=== PATIENT | female | born 1990 | race Caucasian/White ===

== ENCOUNTER 2017-08-07 10:06 | Emergency (ER) | payer SELFPAY ==
[~2017-08-07] VITALS: Ht 162.6 cm; Wt 89.8 kg
[~2017-08-07 10:06] MED LIST: AMOX500C PO; POLY10DR3 EACHEYE
[2017-08-07 10:35] LABS: BILIRUBIN,URINE NEGATIVE (NEG); GLUCOSE,URINE NEGATIVE (NEG); NITRITE,URINE NEGATIVE (NEG); PROTEIN,URINE 100 mg/dL (NEG-TRACE)
[2017-08-07 10:50] LABS: SQUAMOUS EPITHELIAL CELL,UR OCC /LPF
[2017-08-07 10:51] LABS: BACTERIA,URINE MODERATE /HPF (0-FEW); RBC,URINE FOBS /HPF (0-2); WBC,URINE TNTC /HPF (0-4)
--- NOTE | 2017-08-07 10:53 | PHYS DOC ---
Past Medical History Past Medical History: No Pertinent History Past Surgical History: No Surgical History Alcohol Use: Occasionally Drug Use: None Adult General Chief Complaint Chief Complaint: ABDOMINAL PAIN IN HPI HPI Patient is a 26 year old female since to the emergency department stating that she is approximately 7 weeks . She states that she's been having right lower pelvic pain for the last 2 weeks. She states she was seen last week at [facility]. She states they did do an ultrasound which showed an intrauterine . She states that they did not do any vaginal exam or vaginal cultures. She states that she's been having some yellow vaginal discharge. She does state she was sexually active with only one partner. She denies any history of STD she does have a history of bacterial vaginosis in the past. Some urinary frequency denies any blood in her urine denies any vaginal bleeding at this time. SAB4 Review of Systems Review of Systems Constitutional: Denies fever or chills [] Eyes: Denies change in visual acuity, redness, or eye pain [] HENT: Denies nasal congestion or sore throat [] Respiratory: Denies cough or shortness of breath [] Cardiovascular: No additional information not addressed in HPI [] GI: right lower pelvic abdominal pain, denies nausea, vomiting, bloody stools or diarrhea [] : dysuria, yellow vaginal discharge denies hematuria [] Musculoskeletal: Denies back pain or joint pain [] Integument: Denies rash or skin lesions [] Neurologic: Denies headache, focal weakness or sensory changes [] Endocrine: Denies polyuria or polydipsia [] Allergies Allergies Allergies Coded Allergies Type Severity Reaction Last Updated Verified No Known Drug Allergies 01/07/15 No Physical Exam Physical Exam Constitutional: Well developed, well nourished, no acute distress, non-toxic appearance. [] HENT: Normocephalic, atraumatic, bilateral external ears normal, oropharynx moist, no oral exudates, nose normal. [] Eyes: PERRLA, EOMI, conjunctiva normal, no discharge. [] Neck: Normal range of motion, no tenderness, supple, no stridor. [] Cardiovascular:Heart rate regular rhythm, no murmur [] Lungs & Thorax: Bilateral breath sounds clear to auscultation [] Abdomen: Bowel sounds hypoactive, soft, no tenderness, no masses, no pulsatile masses. [] Skin: Warm, dry, no erythema, no rash. [] Extremities: No tenderness, no cyanosis, no clubbing, ROM intact, no edema. [] Neurologic: Alert and oriented X 3, normal motor function, normal sensory function, no focal deficits noted. [] Psychologic: Affect normal, judgement normal, mood normal. [] Vaginal exam with Maddy RN at bedside. Speculum exam with yellow clear vaginal discharge noted in the vault. Cervix appears closed. Manual exam with right adnexal tenderness, no left adnexal tenderness no CMT Current Patient Data Vital Signs Vital Signs Date Time Temp Pulse Resp B/P (MAP) Pulse Ox O2 Delivery O2 Flow Rate FiO2 08/07/17 10:24 98.5 88 16 126/74 (91) 98 Room Air 98.5 Lab Values Laboratory Tests Test 08/07/17 10:12 08/07/17 10:27 08/07/17 10:53 Urine Collection Type Unknown Urine Color Yellow Urine Clarity Cloudy Urine pH 7.0 Urine Specific [place] 1.025 Urine Protein 100 mg/dL (NEG-TRACE) Urine Glucose (UA) Negative mg/dL (NEG) Urine Ketones (Stick) Negative mg/dL (NEG) Urine Blood Small (NEG) Urine Nitrite Negative (NEG) Urine Bilirubin Negative (NEG) Urine Urobilinogen Dipstick 1.0 mg/dL (0.2 mg/dL) Urine Leukocyte Esterase Large (NEG) Urine RBC Fobs /HPF (0-2) Urine WBC Tntc /HPF (0-4) Urine Squamous Epithelial Cells Occ /LPF Urine Bacteria Moderate /HPF (0-FEW) Urine Mucus Slight /LPF POC Urine HCG, Qualitative Hcg positive (Negative) Maternal Serum HCG Beta Subunit 91278 mIU/mL (0-5) H Microbiology 08/07/17 Wet Prep - Final, Complete EKG EKG [] Radiology/Procedures Radiology/Procedures [][facility] [address] [place] [address] IMAGING REPORT Signed PATIENT: PAUL HERRERA ACCOUNT: [id number] : 1990 LOCATION: ER AGE: 26 SEX: F EXAM STATUS: REG ER ORD. PHYSICIAN: SIMON FINCH APRN REASON: vaginal bleeding approx 7 wks preg per patient PROCEDURE: OB <14 WKS W/TV Examination: Obstetric ultrasound less than 14 weeks History: History of pelvic pain Comparison: 11/23/2015 Findings: The uterus measures 11.4 x 7.2 x 6.3 cm. The right ovary measures 3.5 x 2.9 x 4.5 cm. The left ovary measures 3.1 x 1.9 x 2.5 cm. Intrauterine gestational sac is identified with the yolk sac. pole is identified with crown-rump length measuring 0.6 cm corresponding to 6 weeks and 3 days. Gestational sac measures 3.1 cm corresponding to 8 weeks and 2 days. Gestational age by this ultrasound is 7 weeks and 3 days with estimated date of delivery by this ultrasound 03/23/2018. Please note that the given LMP is ?01/24/2017, which may be wrong. Amniotic fluid is normal. Impression: Single living intrauterine with heart rate of 118 bpm. Gestational age by this ultrasound 7 weeks and 3 days with estimated date of delivery by this ultrasound 03/23/2018. DICTATED and SIGNED BY: FEDERICO LEMA MD DATE: 08/07/17 1142 CC: SIMON FINCH APRN; NO PCP ~ Course & Med Decision Making Course & Med Decision Making Pertinent Labs and Imaging studies reviewed. (See chart for details) US identified a 7 week intrauterine . Patients wet prep was positive for bacterial vaginosis. Urine is positive for UTI. Patient refused to be treated for STD. Patient will be discharged home in stable condition recommended she drink plenty of fluids such as water and cranberry juice. Recommended avoiding cranberry juice cocktail, carbonated beverages, caffeine and alcohol. Recommended followup within the next week with [facility] or primary care provider. Signs and symptoms to return to the emergency department has been provided all questions and concerns have been answered. Patient will be discharged home in stable condition. beta quant hcg [id number] [] Dragon Disclaimer Dragon Disclaimer This electronic medical record was generated, in whole or in part, using a voice recognition dictation system. Departure Departure Impression: Primary Impression: Bacterial vaginosis Additional Impression: Urinary tract infection Disposition: HOME, SELF-CARE Condition: STABLE Referrals: UNKNOWN PCP NAME (PCP) Patient Instructions: Bacterial Vaginosis, [id number], Urinary Tract Infection, [id number] Additional Instructions: Activity as tolerated Medication as prescribed Drink plenty of fluids such as water and cranberry juice Avoid cranberry juice cocktail, carbonated beverages, caffeine, alcohol and citrus fruits as these are considered irritants to the bladder Beta hcg quant level [id number] Followup with your primary care provider and/or [facility] in the next week Return to the emergency department as needed for signs and symptoms that become worse. Scripts Nitrofurantoin Monohyd/M-Cryst (MACROBID 100 MG CAPSULE) 100 Mg Capsule 1 CAP PO BID, #14 CAP Prov: SIMON FINCH APRN 08/07/17 Metronidazole (FLAGYL) 500 Mg Tablet 1 TAB PO BID, #14 TAB Prov: SIMON FINCH APRN 08/07/17 Problem Qualifiers Additional Impression: Urinary tract infection Urinary tract infection type: site unspecified Hematuria presence: with hematuria Qualified Codes: N39.0 - Urinary tract infection, site not specified ; R31.9 - Hematuria, unspecified SIMON FINCH APRN Aug 07, 2017 10:53
[2017-08-07] MEDS ORDERED: METR500T PO (11:45)
[2017-08-07] MEDS ORDERED: NITR100C62 PO (11:45)
--- NOTE | 2017-08-07 11:53 | RAD ---
Examination: Obstetric ultrasound less than 14 weeks History: History of pelvic pain Comparison: 11/23/2015 Findings: The uterus measures 11.4 x 7.2 x 6.3 cm. The right ovary measures 3.5 x 2.9 x 4.5 cm. The left ovary measures 3.1 x 1.9 x 2.5 cm. Intrauterine gestational sac is identified with the yolk sac. pole is identified with crown-rump length measuring 0.6 cm corresponding to 6 weeks and 3 days. Gestational sac measures 3.1 cm corresponding to 8 weeks and 2 days. Gestational age by this ultrasound is 7 weeks and 3 days with estimated date of delivery by this ultrasound 03/23/2018. Please note that the given LMP is ?01/24/2017, which may be wrong. Amniotic fluid is normal. Impression: Single living intrauterine with heart rate of 118 bpm. Gestational age by this ultrasound 7 weeks and 3 days with estimated date of delivery by this ultrasound 03/23/2018.
[2017-08-07 12:27] VITALS: BP 122/68
--- NOTE | 2017-08-11 15:35 | VNOTE ---
CALL BACK NOTE CALL BACK Microbiology 08/07/17 Wet Prep - Final, Complete 08/07/17 Urine Culture - Final, Complete 08/07/17 Urine Culture Result 1 (RAVINDRA) - Final, Complete 08/07/17 Urine Culture Result 2 (RAVINDRA) - Final, Complete 08/07/17 Antimicrobic Susceptibility - Final, Complete Patient is positive for chlamydia and was not treated, contacted patient spoke to her prescription for azithromycin called into her local pharmacy. Educated on STDs. HANNAH HANKINS APRN Aug 11, 2017 15:35
== END 2017-08-07 12:28 | disposition home or self-care (01) ==
LOC: ER 10:06
DX: O23.591 Infection of other part of genital tract in pregnancy, first trimester (principal); N76.0 Acute vaginitis; B96.89 Other specified bacterial agents as the cause of diseases classified elsewhere; O23.41 Unspecified infection of urinary tract in pregnancy, first trimester; Z3A.01 Less than 8 weeks gestation of pregnancy
CPT/HCPCS: 36415; 76801; 76817; 81001; 81025; 84702; 87086; 87491; 87591; 99285; Q0111

== ENCOUNTER 2018-09-07 15:28 | Emergency (ER) | payer OTHER ==
[~2018-09-07] VITALS: Ht 162.6 cm; Wt 86.2 kg
[~2018-09-07 15:28] MED LIST changes: +METR500T PO; +NITR100C62 PO
[2018-09-07 16:08] VITALS: BP 117/78
--- NOTE | 2018-09-07 16:48 | PHYS DOC ---
Past Medical History Past Medical History: No Pertinent History Past Surgical History: No Surgical History Alcohol Use: Occasionally Drug Use: None Adult General Chief Complaint Chief Complaint: COUGH HPI HPI Patient is a 27 year old [f__sex] who presents with [] Review of Systems Review of Systems Constitutional: Denies fever or chills [] Eyes: Denies change in visual acuity, redness, or eye pain [] HENT: Denies nasal congestion or sore throat [] Respiratory: Denies cough or shortness of breath [] Cardiovascular: No additional information not addressed in HPI [] GI: Denies abdominal pain, nausea, vomiting, bloody stools or diarrhea [] : Denies dysuria or hematuria [] Musculoskeletal: Denies back pain or joint pain [] Integument: Denies rash or skin lesions [] Neurologic: Denies headache, focal weakness or sensory changes [] Endocrine: Denies polyuria or polydipsia [] All other systems were reviewed and found to be within normal limits, except as documented in this note. Allergies Allergies Allergies Coded Allergies Type Severity Reaction Last Updated Verified No Known Drug Allergies 01/07/15 No Physical Exam Physical Exam Constitutional: Well developed, well nourished, no acute distress, non-toxic appearance. [] HENT: Normocephalic, atraumatic, bilateral external ears normal, oropharynx moist, no oral exudates, nose normal. [] Eyes: PERRLA, EOMI, conjunctiva normal, no discharge. [] Neck: Normal range of motion, no tenderness, supple, no stridor. [] Cardiovascular:Heart rate regular rhythm, no murmur [] Lungs & Thorax: Bilateral breath sounds clear to auscultation [] Abdomen: Bowel sounds normal, soft, no tenderness, no masses, no pulsatile masses. [] Skin: Warm, dry, no erythema, no rash. [] Back: No tenderness, no CVA tenderness. [] Extremities: No tenderness, no cyanosis, no clubbing, ROM intact, no edema. [] Neurologic: Alert and oriented X 3, normal motor function, normal sensory function, no focal deficits noted. [] Psychologic: Affect normal, judgement normal, mood normal. [] Current Patient Data Vital Signs Vital Signs Date Time Temp Pulse Resp B/P (MAP) Pulse Ox O2 Delivery O2 Flow Rate FiO2 09/07/18 16:08 98.6 79 16 117/78 (91) 99 Room Air 98.6 EKG EKG [] Radiology/Procedures Radiology/Procedures [] Course & Med Decision Making Course & Med Decision Making Pertinent Labs and Imaging studies reviewed. (See chart for details) [] Dragon Disclaimer Dragon Disclaimer This electronic medical record was generated, in whole or in part, using a voice recognition dictation system. Departure Departure Impression: Primary Impression: Upper respiratory infection Disposition: HOME, SELF-CARE Condition: STABLE Referrals: NO PCP (PCP) Patient Instructions: Upper Respiratory Infection, Adult Additional Instructions: You may use [id number] cough and cold medications to control your symptoms. Your strep screen was negative. Antibiotics would not help your condition at this point. Follow-up with your primary care provider in one week if not improving or return to the emergency department if worsening. GLENN MEANS APRN Sep 07, 2018 16:48
== END 2018-09-07 17:18 | disposition home or self-care (01) ==
LOC: ER 15:28
DX: J06.9 Acute upper respiratory infection, unspecified (principal)
CPT/HCPCS: 87070; 87880; 99283

== ENCOUNTER 2019-03-13 13:13 | Emergency (ER) | payer OTHER ==
[~2019-03-13] VITALS: Ht 162.6 cm; Wt 86.2 kg
[2019-03-13 13:37] VITALS: BP 132/87
[2019-03-13 14:07] LABS: BILIRUBIN,URINE NEGATIVE (NEG); CLARITY,URINE CLOUDY; COLOR,URINE YELLOW; NITRITE,URINE NEGATIVE (NEG); PROTEIN,URINE 100 mg/dL (NEG-TRACE); UROBILINOGEN,URINE 0.2 mg/dL (0.2 mg/dL)
--- NOTE | 2019-03-13 14:12 | PHYS DOC ---
Past Medical History Past Medical History: No Pertinent History Past Surgical History: No Surgical History Alcohol Use: Occasionally Drug Use: None Adult General Chief Complaint Chief Complaint: PELVIC PAIN HPI HPI Patient is a 28 year old female with no significant medical history who presents to the ED today complaining of dysuria, frequency, lower abdominal cramping like pain, and mild low back pain, patient states symptoms began 2 days ago. Denies any chance she is . Denies any fever, nausea, vomiting. Denies any diarrhea. Denies any concerns for STDs. Review of Systems Review of Systems Constitutional: Denies fever or chills [] Eyes: Denies change in visual acuity, redness, or eye pain [] HENT: Denies nasal congestion or sore throat [] Respiratory: Denies cough or shortness of breath [] Cardiovascular: No additional information not addressed in HPI [] GI: Reports abdominal cramping. Denies nausea, vomiting, bloody stools or diarrhea [] : Reports dysuria, denies hematuria [] Musculoskeletal: Reports low back pain Integument: Denies rash or skin lesions [] Neurologic: Denies headache, focal weakness or sensory changes [] All other systems were reviewed and found to be within normal limits, except as documented in this note. Allergies Allergies Allergies Coded Allergies Type Severity Reaction Last Updated Verified No Known Drug Allergies 01/07/15 No Physical Exam Physical Exam Constitutional: Well developed, well nourished, no acute distress, non-toxic appearance. [] HENT: Normocephalic, atraumatic, bilateral external ears normal, oropharynx moist, no oral exudates, nose normal. [] Eyes: PERRLA, EOMI, conjunctiva normal, no discharge. [] Neck: Normal range of motion, no tenderness, supple, no stridor. [] Cardiovascular:Heart rate regular rhythm, no murmur [] Lungs & Thorax: Bilateral breath sounds clear to auscultation [] Abdomen: Bowel sounds normal, soft, no tenderness, no masses, no pulsatile masses. [] Pelvic exam External pelvic appears normal, cervix is visualized, closed, no CMT, no adnexal tenderness. Trace amount of white discharge in the vaginal vault Skin: Warm, dry, no erythema, no rash. [] Back: No tenderness, no CVA tenderness. [] Extremities: No tenderness, no cyanosis, no clubbing, ROM intact, no edema. [] Neurologic: Alert and oriented X 3, normal motor function, normal sensory function, no focal deficits noted. [] Psychologic: Affect normal, judgement normal, mood normal. [] Current Patient Data Vital Signs Vital Signs Date Time Temp Pulse Resp B/P (MAP) Pulse Ox O2 Delivery O2 Flow Rate FiO2 03/13/19 13:37 99.0 90 16 132/87 (102) 100 Room Air 99.0 Lab Values Laboratory Tests Test 03/13/19 13:25 03/13/19 13:37 Urine Collection Type Unknown Urine Color Yellow Urine Clarity Cloudy Urine pH 6.0 Urine Specific [place] 1.015 Urine Protein 100 mg/dL (NEG-TRACE) Urine Glucose (UA) Negative mg/dL (NEG) Urine Ketones (Stick) Negative mg/dL (NEG) Urine Blood Large (NEG) Urine Nitrite Negative (NEG) Urine Bilirubin Negative (NEG) Urine Urobilinogen Dipstick 0.2 mg/dL (0.2 mg/dL) Urine Leukocyte Esterase Large (NEG) Urine RBC 6-10 /HPF (0-2) Urine WBC Tntc /HPF (0-4) Urine Squamous Epithelial Cells Mod /LPF Urine Bacteria Few /HPF (0-FEW) POC Urine HCG, Qualitative Hcg negative (Negative) Microbiology 03/13/19 Wet Prep - Final, Complete EKG EKG [] Radiology/Procedures Radiology/Procedures [] Course & Med Decision Making Course & Med Decision Making Pertinent Labs and Imaging studies reviewed. (See chart for details) This is a 28-year-old female patient presenting to the ED today with urgency, frequency, dysuria, lower abdominal cramping. Symptoms for 2 days. Negative urine hCG. Urine analysis is noted for UTI, patient was discharged on cephalexin. Wet prep noted for clue cells, discharge and Flagyl. Tylenol/Motrin for pain or fever. Follow-up with PCP in 1-2 weeks as needed. Provided return precautions. Jonathan Disclaimer Dragon Disclaimer This electronic medical record was generated, in whole or in part, using a voice recognition dictation system. Departure Departure Impression: Primary Impression: Bacterial vaginosis Additional Impression: Urinary tract infection Disposition: HOME, SELF-CARE Condition: STABLE Referrals: NO PCP (PCP) Follow-up with your doctor in 1-2 weeks Patient Instructions: Bacterial Vaginosis, [id number], Urinary Tract Infection Additional Instructions: You were evaluated in the medicine emergency positive for urinary tract infection and bacterial vaginosis, we put you on antibiotics, ensure you complete them. Take Tylenol/Motrin for pain or fever. Push fluids. Follow-up with your doctor in 1-2 weeks. Come back to the ED at any point symptoms worsen. Scripts Metronidazole (FLAGYL) 500 Mg Tablet 1 TAB PO BID, #14 TAB Prov: HANNAH HANKINS APRN 03/13/19 Cephalexin (CEPHALEXIN) 500 Mg Tablet 1 TAB PO BID, #14 TAB Prov: HANNAH HANKINS APRN 03/13/19 Problem Qualifiers Additional Impression: Urinary tract infection Urinary tract infection type: site unspecified Hematuria presence: without hematuria Qualified Codes: N39.0 - Urinary tract infection, site not specified HANNAH HANKINS APRN Mar 13, 2019 14:12
[2019-03-13 14:26] LABS: BACTERIA,URINE FEW /HPF (0-FEW); WBC,URINE TNTC /HPF (0-4)
[2019-03-13 14:27] LABS: SQUAMOUS EPITHELIAL CELL,UR MOD /LPF
[2019-03-13] MEDS ORDERED: CEPH500T PO (14:57)
[2019-03-13] MEDS ORDERED: METR500T PO (14:57)
[2019-03-15 15:13] LABS: GC PROBE Negative (Negative)
== END 2019-03-13 15:06 | disposition home or self-care (01) ==
LOC: ER 13:13
DX: N39.0 Urinary tract infection, site not specified (principal); N76.0 Acute vaginitis; B96.89 Other specified bacterial agents as the cause of diseases classified elsewhere
CPT/HCPCS: 81001; 81025; 87491; 87591; 99284; Q0111

== ENCOUNTER 2019-03-15 19:18 | Emergency (ER) | payer OTHER ==
[~2019-03-15] VITALS: Ht 157.5 cm; Wt 86.2 kg
[~2019-03-15 19:18] MED LIST changes: +CEPH500T PO
[2019-03-15 20:03] VITALS: BP 121/81
[2019-03-15] MEDS ORDERED: methylPREDNISolone SOD SUCC PF 125 MG/2 ML VIAL. IV ONE (20:15)
[2019-03-15] MEDS ORDERED: diphenhydrAMINE HCL 25 MG CAPSULE PO ONE (20:15)
[2019-03-15] MEDS ORDERED: PRED5TAB PO (20:30)
--- NOTE | 2019-03-15 20:30 | PHYS DOC ---
Past Medical History Past Medical History: No Pertinent History (JOHN DELA CRUZ) Past Surgical History: No Surgical History (JOHN DELA CRUZ) Alcohol Use: Occasionally Drug Use: None (JOHN DELA CRUZ) Adult General Chief Complaint Chief Complaint: FACE PROBLEM HPI HPI Patient is a 28 year old F who is here with swelling and itching of her face. Mostly of the R side of face and around eye, but also on inside of L eye and along her lower chin. She is unsure of contact with any new substance but states she could have been exposed to poison hasmukh. She has no trouble with vision and denies SOB or any oral swelling. She was seen in our ER recently and dx with UTI and BV and has been on Keflex and Flagyl but states her swelling and itching started prior to starting the medicine. (JOHN DELA CRUZ) Review of Systems Review of Systems Constitutional: Denies fever or chills Eyes: Denies change in visual acuity, redness, or eye pain. R periorbital edema HENT: Denies nasal congestion or sore throat Respiratory: Denies cough or shortness of breath Cardiovascular: Denies chest pain GI: Denies abdominal pain, nausea, vomiting, bloody stools or diarrhea Musculoskeletal: Denies back pain or joint pain Integument: Edema around R orbit, R face Neurologic: Denies headache, focal weakness or sensory change All other systems were reviewed and found to be within normal limits, except as documented in this note. (JOHN DELA CRUZ) Current Medications Current Medications Current Medications Medications (Trade) Dose Ordered Sig/Po Start Time Stop Time Status Last Admin Dose Admin Diphenhydramine HCl (Benadryl) 25 mg 1X ONCE 03/15/19 20:15 03/15/19 20:16 DC 03/15/19 20:17 25 MG Methylprednisolone Sodium Succinate (SOLU-Medrol 125MG VIAL) 125 mg 1X ONCE 03/15/19 20:15 03/15/19 20:16 DC (JACQUI CERON MD) Allergies Allergies Allergies Coded Allergies Type Severity Reaction Last Updated Verified No Known Drug Allergies 01/07/15 No (JACQUI CERON MD) Physical Exam Physical Exam Constitutional: Well developed, well nourished, no acute distress, non-toxic appearance. HENT: Normocephalic, atraumatic, bilateral external ears normal, oropharynx moist, no oral exudates, nose normal. Eyes: PERRLA, EOMI, conjunctiva normal, no discharge. R periorbital edema, no signs of erythema or pain, no cellulitis Neck: Normal range of motion, no tenderness, supple, no stridor. Cardiovascular:Heart rate regular rhythm, no murmur Lungs & Thorax: Bilateral breath sounds clear to auscultation Abdomen: Bowel sounds normal, soft, no tenderness, no masses, no pulsatile masses. Skin: Warm, dry. Swelling around R eye and erythema of chin and R cheek, pruritic, painless Back: No tenderness, no CVA tenderness. Extremities: No tenderness, no cyanosis, no clubbing, ROM intact Neurologic: Alert and oriented X 3, normal motor function, normal sensory function, no focal deficits noted. Psychologic: Affect normal, judgement normal, mood normal. (JOHN DELA CRUZ) Current Patient Data Vital Signs Vital Signs Date Time Temp Pulse Resp B/P (MAP) Pulse Ox O2 Delivery O2 Flow Rate FiO2 03/15/19 20:03 98.0 82 18 121/81 (94) 99 Room Air 98.0 (JACQUI CERON MD) EKG EKG [] (JOHN DELA CRUZ) Radiology/Procedures Radiology/Procedures [] (JOHN DELA CRUZ) Course & Med Decision Making Course & Med Decision Making Pertinent Labs and Imaging studies reviewed. (See chart for details) Suspect contact dermatitis and pt given IM steroids and antihistamine. Pt will continue oral antihistamines, steroids and cool compresses at home. Instructed to return if symptoms worsen at anytime. (JOHN DELA CRUZ) Course & Med Decision Making Staff Physician Addendum: I was working in the ER during the course of this patient's visit. I was available for consultation as needed, but I was not directly involved in the care of this patient. (JACQUI CERON MD) Dragon Disclaimer Dragon Disclaimer This electronic medical record was generated, in whole or in part, using a voice recognition dictation system. (JOHN DELA CRUZ) Departure Departure Impression: Primary Impression: Contact dermatitis Disposition: 01 HOME, SELF-CARE Condition: STABLE Referrals: NO PCP (PCP) Patient Instructions: Contact Dermatitis, [id number] Additional Instructions: Take oral antihistamines such as Benadryl, Zyrtec, Lizzy or Claritin. Cool compresses (cold washcloth) to face to help with swelling. Avoid ice pack over the eyes. Scripts Prednisone (PREDNISONE) 5 Mg Tablet 20 MG PO BID for 4 Days, #32 TAB Start oral steroid on 03/16/19 4 pills at one time, twice daily x 4 days Prov: JOHN DELA CRUZ 03/15/19 JOHN DELA CRUZ Mar 15, 2019 20:30 JACQUI CERON MD Mar 21, 2019 10:11
== END 2019-03-15 20:40 | disposition home or self-care (01) ==
LOC: ER 19:18
DX: L25.9 Unspecified contact dermatitis, unspecified cause (principal)
CPT/HCPCS: 99283; Q0163

== ENCOUNTER 2019-04-27 15:36 | Emergency (ER) | payer OTHER ==
[~2019-04-27] VITALS: Ht 157.5 cm; Wt 86.2 kg
[~2019-04-27 15:36] MED LIST changes: +PRED5TAB PO
[2019-04-27 16:26] VITALS: BP 136/88
[2019-04-27] MEDS ORDERED: CEPH500C PO (17:05)
--- NOTE | 2019-04-27 17:06 | PHYS DOC ---
Past Medical History Past Medical History: No Pertinent History Past Surgical History: No Surgical History Alcohol Use: Occasionally Drug Use: None Adult General Chief Complaint Chief Complaint: INSECT BITE [facility] HPI Patient is a 28 year old female who presents to the ER with complaints of left inner thigh redness, swelling, warmth, and itching for the last 3 days. She denies any drainage or bleeding from the site. She reports that at first she thought it was just a bug bite, as she has severe reactions to bug bites. She noticed today that the area of erythema was growing. She denies any fever, body aches, numbness, or tingling. Her discomfort is a 4/10 on the pain scale she denies any alleviating or exacerbating factors. Review of Systems Review of Systems Constitutional: Denies fever or chills [] Respiratory: Denies cough or shortness of breath [] Cardiovascular: No additional information not addressed in HPI [] Musculoskeletal: Denies joint pain [] Integument: see history of present illness Neurologic: Denies headache, focal weakness or sensory changes [] Allergies Allergies Allergies Coded Allergies Type Severity Reaction Last Updated Verified No Known Drug Allergies 01/07/15 No Physical Exam Physical Exam Constitutional: Well developed, well nourished, no acute distress, non-toxic appearance, obese. [] HENT: Normocephalic, atraumatic, nose normal. [] Eyes: conjunctiva normal, no discharge. [] Neck: Normal range of motion, no stridor. [] Lungs & Thorax: Respirations even and unlabored, no retractions, no respiratory distress Skin: Warm, dry; erythematous, warm, indurated area with central punctum consistent with an infected insect bite noted to left inner thigh, no visible abscess or drainage Extremities: No tenderness, no cyanosis, ROM intact Neurologic: Alert and oriented X 3, no focal deficits noted. [] Psychologic: Affect normal, judgement normal, mood normal. [] Current Patient Data Vital Signs Vital Signs Date Time Temp Pulse Resp B/P (MAP) Pulse Ox O2 Delivery O2 Flow Rate FiO2 04/27/19 16:26 98.0 64 16 136/88 (104) 99 Room Air 98.0 EKG EKG [] Radiology/Procedures Radiology/Procedures [] Course & Med Decision Making Course & Med Decision Making Pertinent Labs and Imaging studies reviewed. (See chart for details) [] Dragon Disclaimer Jonathan Disclaimer This electronic medical record was generated, in whole or in part, using a voice recognition dictation system. Departure Departure Impression: Primary Impression: Infected insect bite of left thigh Disposition: HOME, SELF-CARE Condition: STABLE Referrals: NO PCP (PCP) Patient Instructions: Insect Bite, [id number] Additional Instructions: Fill the prescription(s) and use as directed. You may apply topical hydrocortisone cream or Benadryl cream for relief of itching. Recommend application of cool packs to the affected area for comfort, you may also take Tylenol or ibuprofen as needed for pain. Follow-up with your primary care doctor if symptoms persist, return to the ER if symptoms worsen. Scripts Cephalexin (CEPHALEXIN) 500 Mg Capsule 500 MG PO QID for 7 Days, #28 CAP 0 Refills Prov: DIDIER CLEMENTE APRN 04/27/19 Problem Qualifiers Primary Impression: Infected insect bite of left thigh Encounter type: initial encounter Qualified Codes: S70.362A - Insect bite (nonvenomous), left thigh, initial encounter; L08.9 - Local infection of the skin and subcutaneous tissue, unspecified; W57.XXXA - Bitten or stung by nonvenomous insect and other nonvenomous arthropods, initial encounter DIDIER CLEMENTE APRN Apr 27, 2019 17:05
== END 2019-04-27 17:26 | disposition home or self-care (01) ==
LOC: ER 15:36
DX: S70.362A Insect bite (nonvenomous), left thigh, initial encounter (principal); L08.9 Local infection of the skin and subcutaneous tissue, unspecified; W57.XXXA Bitten or stung by nonvenomous insect and other nonvenomous arthropods, initial encounter; Y93.89 Activity, other specified; Y92.89 Other specified places as the place of occurrence of the external cause; Y99.8 Other external cause status
CPT/HCPCS: 99283

== ENCOUNTER 2019-11-11 19:25 | Emergency (ER) | payer OTHER ==
[~2019-11-11] VITALS: Ht 157.5 cm; Wt 100.0 kg
[~2019-11-11 19:25] MED LIST changes: +CEPH500C PO
[2019-11-11 19:57] LABS: BASO # 0.1 x10^3/uL (0.0-0.2); BASO % 1 % (0-3); EOS # 0.5 x10^3/uL (0.0-0.7); EOS % 5 % (0-3); HEMATOCRIT 36.7 % (36.0-47.0); HEMOGLOBIN 12.8 g/dL (12.0-15.5); LYMPH % 29 % (24-48); MEAN CORPUSCULAR HEMOGLOBIN 32 pg (25-35); MEAN CORPUSCULAR HGB CONC 35 g/dL (31-37); MEAN CORPUSCULAR VOLUME 92 fL (79-100); MONO % 9 % (0-9); NEUT # 5.9 x10^3/uL (1.8-7.7); NEUT % 56 % (31-73); PLATELET COUNT 250 x10^3/uL (140-400); RED BLOOD COUNT 3.99 x10^6/uL (3.50-5.40); WHITE BLOOD COUNT 10.6 x10^3/uL (4.0-11.0)
[2019-11-11 19:58] LABS: BILIRUBIN,URINE NEGATIVE (NEG); CLARITY,URINE CLOUDY; COLOR,URINE YELLOW; NITRITE,URINE NEGATIVE (NEG); PH,URINE 6.5; PROTEIN,URINE 30 mg/dL (NEG-TRACE)
--- NOTE | 2019-11-11 19:58 | PHYS DOC ---
Past Medical History Past Medical History: No Pertinent History Past Surgical History: No Surgical History Alcohol Use: None Drug Use: None Adult General Chief Complaint Chief Complaint: NAUSEA/VOMITING/DIARRHA HPI HPI 29-year-old female obese presents to the emergency department with complaints of nausea, vomiting, bodyaches, cough, fever times approximate 3 days. Patient states her kids of had the influenza virus, mother has had influenza virus, she did not receive her influenza vaccine. Given her continued symptoms she presents to emergency department for further evaluation. Nothing makes her symptoms worse, nothing makes her symptoms better. She denies any chest pain, abdominal pain. Does have a cough which is nonproductive at times does have some mucus. All other ROS negative unless documented in HPI Review of Systems Review of Systems See Above Current Medications Current Medications Current Medications Medications (Trade) Dose Ordered Sig/Po Start Time Stop Time Status Last Admin Dose Admin Ondansetron HCl (Zofran) 4 mg 1X ONCE 11/11/19 20:00 11/11/19 20:01 DC 11/11/19 20:00 4 MG Sodium Chloride 1,000 ml @ 1,000 mls/hr 1X ONCE 11/11/19 20:00 11/11/19 20:59 DC 11/11/19 20:02 1,000 MLS/HR Allergies Allergies Allergies Coded Allergies Type Severity Reaction Last Updated Verified No Known Drug Allergies 01/07/15 No Physical Exam Physical Exam See Above Constitutional: Well developed, well nourished, no acute distress, non-toxic appearance. [] HENT: Normocephalic, atraumatic, bilateral external ears normal, oropharynx moist, no oral exudates, nose normal. [] Eyes: PERRLA, EOMI, conjunctiva normal, no discharge. [] Cardiovascular: Tachycardia Lungs & Thorax: Bilateral breath sounds clear to auscultation [] Abdomen: Bowel sounds normal, soft, no tenderness, no masses, no pulsatile masses. [] Skin: Warm, dry, no erythema, no rash. [] Back: No tenderness, no CVA tenderness. [] Extremities: No tenderness, no edema. [] Neurologic: Alert and oriented X 3, no focal deficits noted. [] Psychologic: Affect normal, judgement normal, mood normal. [] Current Patient Data Vital Signs Vital Signs Date Time Temp Pulse Resp B/P (MAP) Pulse Ox O2 Delivery O2 Flow Rate FiO2 1/30/20 19:30 99.2 106 14 145/86 (105) 98 Room Air 99.2 Lab Values Laboratory Tests Test 11/11/19 19:30 11/11/19 19:38 11/11/19 20:02 11/11/19 20:03 Urine Collection Type Unknown Urine Color Yellow Urine Clarity Cloudy Urine pH 6.5 Urine Specific Quinn 1.025 Urine Protein 30 mg/dL (NEG-TRACE) Urine Glucose (UA) Negative mg/dL (NEG) Urine Ketones (Stick) Negative mg/dL (NEG) Urine Blood Negative (NEG) Urine Nitrite Negative (NEG) Urine Bilirubin Negative (NEG) Urine Urobilinogen Dipstick 1.0 mg/dL (0.2 mg/dL) Urine Leukocyte Esterase Large (NEG) Urine RBC Occ /HPF (0-2) Urine WBC 20-40 /HPF (0-4) Urine Squamous Epithelial Cells Many /LPF Urine Amorphous Sediment Present /HPF Urine Bacteria Moderate /HPF (0-FEW) Urine Mucus Slight /LPF Urine Yeast Present /HPF White Blood Count 10.6 x10^3/uL (4.0-11.0) Red Blood Count 3.99 x10^6/uL (3.50-5.40) Hemoglobin 12.8 g/dL (12.0-15.5) Hematocrit 36.7 % (36.0-47.0) Mean Corpuscular Volume 92 fL (79-100) Mean Corpuscular Hemoglobin 32 pg (25-35) Mean Corpuscular Hemoglobin Concent 35 g/dL (31-37) Red Cell Distribution Width 13.0 % (11.5-14.5) Platelet Count 250 x10^3/uL (140-400) Neutrophils (%) (Auto) 56 % (31-73) Lymphocytes (%) (Auto) 29 % (24-48) Monocytes (%) (Auto) 9 % (0-9) Eosinophils (%) (Auto) 5 % (0-3) H Basophils (%) (Auto) 1 % (0-3) Neutrophils # (Auto) 5.9 x10^3/uL (1.8-7.7) Lymphocytes # (Auto) 3.0 x10^3/uL (1.0-4.8) Monocytes # (Auto) 1.0 x10^3/uL (0.0-1.1) Eosinophils # (Auto) 0.5 x10^3/uL (0.0-0.7) Basophils # (Auto) 0.1 x10^3/uL (0.0-0.2) Influenza Type A Antigen Negative (NEGATIVE) Influenza Type B Antigen Negative (NEGATIVE) Sodium Level 140 mmol/L (136-145) Potassium Level 3.7 mmol/L (3.5-5.1) Chloride Level 104 mmol/L (98-107) Carbon Dioxide Level 25 mmol/L (21-32) Anion Gap 11 (6-14) Blood Urea Nitrogen 15 mg/dL (7-20) Creatinine 0.7 mg/dL (0.6-1.0) Estimated GFR (Cockcroft-Gault) 99.6 BUN/Creatinine Ratio 21 (6-20) H Glucose Level 92 mg/dL (70-99) Calcium Level 8.7 mg/dL (8.5-10.1) Total Bilirubin 0.2 mg/dL (0.2-1.0) Aspartate Amino Transferase (AST) 12 U/L (15-37) L Alanine Aminotransferase (ALT) 16 U/L (14-59) Alkaline Phosphatase 67 U/L (46-116) Total Protein 6.6 g/dL (6.4-8.2) Albumin 2.7 g/dL (3.4-5.0) L Albumin/Globulin Ratio 0.7 (1.0-1.7) L Laboratory Tests 11/11/19 19:38 Laboratory Tests 11/11/19 20:03 EKG EKG [] Radiology/Procedures Radiology/Procedures [] Course & Med Decision Making Course & Med Decision Making Pertinent Labs and Imaging studies reviewed. (See chart for details) []29-year-old female obese presents to the emergency department with complaints of nausea, vomiting, bodyaches, cough, fever times approximate 3 days. Patient states her kids of had the influenza virus, mother has had influenza virus, she did not receive her influenza vaccine. Given her continued symptoms she presents to emergency department for further evaluation. Nothing makes her symptoms worse, nothing makes her symptoms better. She denies any chest pain, abdominal pain. Does have a cough which is nonproductive at times does have some mucus. Laboratory values reviewed Influenza negative, urinalysis reveals evidence of urinary tract infection. PO challenge in ER Plan dc home Keflex rx provided upon discharge Recommend follow up with PCP Return precautions provided upon discharge Dragon Disclaimer Dragon Disclaimer This electronic medical record was generated, in whole or in part, using a voice recognition dictation system. Departure Departure Impression: Primary Impression: Urinary tract infection Additional Impression: Nausea & vomiting Disposition: 01 HOME, SELF-CARE Condition: STABLE Referrals: NO PCP (PCP) Patient Instructions: Nausea and Vomiting, [id number], - Urinary Tract Infection Additional Instructions: Recommend follow up with PCP 3 - 5 days Return to the ER with worsening symptoms, intractable pain, fever, altered mental status Tylenol/Motrin as needed for pain Take antibiotics as directed Influenza negative UA with evidence of UTI Scripts Cephalexin (KEFLEX) 500 Mg Capsule 2 CAP PO Q12HR for 3 Days, #12 CAP Prov: KARRI FORREST MD 11/11/19 Ondansetron Hcl (ZOFRAN) 4 Mg Tablet 1 TAB PO PRN Q6-8HRS for nausea, #12 TAB Prov: KARRI FORREST MD 11/11/19 Problem Qualifiers Primary Impression: Urinary tract infection Urinary tract infection type: site unspecified Hematuria presence: without hematuria Qualified Codes: N39.0 - Urinary tract infection, site not specified Additional Impression: Nausea & vomiting Vomiting type: unspecified Vomiting Intractability: unspecified Qualified Codes: R11.2 - Nausea with vomiting, unspecified KARRI FORREST MD Nov 11, 2019 19:58
[2019-11-11] MEDS ORDERED: IV NORMAL SALINE 1000ML BAG 1,000 ML IV ONE (20:00)
[2019-11-11] MEDS ORDERED: ONDANSETRON PF 4 MG/2 ML VIAL. IVP ONE (20:00)
[2019-11-11 20:04] LABS: AMORPHOUS SEDIMENT,UR PRESENT /HPF; BACTERIA,URINE MODERATE /HPF (0-FEW); RBC,URINE OCC /HPF (0-2); SQUAMOUS EPITHELIAL CELL,UR MANY /LPF; WBC,URINE 20-40 /HPF (0-4)
[2019-11-11 20:05] LABS: YEAST,URINE PRESENT /HPF
[2019-11-11 20:22] LABS: CALCIUM 8.7 mg/dL (8.5-10.1); CREATININE 0.7 mg/dL (0.6-1.0); GFR 99.6; POTASSIUM 3.7 mmol/L (3.5-5.1)
[2019-11-11 20:29] LABS: ALBUMIN 2.7 g/dL (3.4-5.0); ALBUMIN/GLOBULIN RATIO 0.7 (1.0-1.7); TOTAL BILIRUBIN 0.2 mg/dL (0.2-1.0); TOTAL PROTEIN 6.6 g/dL (6.4-8.2)
[2019-11-11 20:37] LABS: INFLUENZA A PATIENT NEGATIVE (NEGATIVE); INFLUENZA B PATIENT NEGATIVE (NEGATIVE)
[2019-11-11] MEDS ORDERED: ONDA4TAB7 PO (21:22)
[2019-11-11] MEDS ORDERED: CEPH-264 PO (21:22)
[2019-11-11 21:33] VITALS: BP 126/59
[2019-11-11] MEDS ORDERED: cefTRIAXone IV Push 1 GM VIAL. IVP ONE (22:00)
== END 2019-11-11 21:45 | disposition home or self-care (01) ==
LOC: ER 19:25
DX: O23.41 Unspecified infection of urinary tract in pregnancy, first trimester (principal); O99.211 Obesity complicating pregnancy, first trimester; O21.9 Vomiting of pregnancy, unspecified; Z3A.12 12 weeks gestation of pregnancy
CPT/HCPCS: 36415; 80053; 81001; 85025; 87086; 87804; 96361; 96374; 96375; 99285; J0696; J2405; J7030

== ENCOUNTER 2020-10-11 15:44 | Emergency (ER) | payer OTHER ==
[~2020-10-11] VITALS: Ht 162.6 cm; Wt 92.0 kg
[~2020-10-11 15:44] MED LIST changes: +CEPH-264 PO; +ONDA4TAB7 PO
[2020-10-11 17:32] VITALS: BP 110/77
[2020-10-11] MEDS ORDERED: SULF1TAB23 PO (18:06)
[2020-10-11] MEDS ORDERED: NAPR-514 PO (18:06)
[2020-10-11] MEDS ORDERED: HYDR-3164 PO (18:06)
--- NOTE | 2020-10-11 18:07 | PHYS DOC ---
Past Medical History Past Medical History: No Pertinent History Past Surgical History: No Surgical History Smoking Status: Never Smoker Alcohol Use: None Drug Use: None General Adult EDM: Chief Complaint: VAGINAL PROBLEM HPI: HPI: Patient is a 29 year old female who presents to the ED stating she has 2 swoll en areas in her vagina, patient states she has an appointment with her [facility] and would like something for pain until she is seen by the [facility]. Denies any fever. Denies any concerns for STDs. Denies any chance she is , she states her fallopian tubes were removed years ago. Review of Systems: Review of Systems: Constitutional: Denies fever or chills. [] GI: Denies abdominal pain, nausea, vomiting, bloody stools or diarrhea. [] : Denies dysuria. [] Musculoskeletal: Denies back pain or joint pain. [] Integument: Reports swollen area in the vagina Neurologic: Denies headache, focal weakness or sensory changes. [] Psychiatric: Denies depression or anxiety. [] Heart Score: Risk Factors: Risk Factors: DM, Current or recent (<one month) smoker, HTN, HLP, family history of CAD, obesity. Risk Scores: Score 0 - 3: 2.5% MACE over next 6 weeks - Discharge Home Score 4 - 6: 20.3% MACE over next 6 weeks - Admit for Clinical Observation Score 7 - 10: 72.7% MACE over next 6 weeks - Early Invasive Strategies Allergies: Allergies: Allergies Coded Allergies Type Severity Reaction Last Updated Verified No Known Drug Allergies 01/07/15 No Physical Exam: PE: Constitutional: Well developed, well nourished, no acute distress, non-toxic appearance. [] Skin: Inner aspect of the vaginal wall have 2 indurated areas one on each side roughly 2 x 2 cm each suspicious of a Bartholin cyst, no erythema. No drainage. No fluctuance. Back: No tenderness, no CVA tenderness. [] Extremities: No tenderness, no cyanosis, no clubbing, ROM intact, no edema. [] Neurologic: Alert and oriented X 3, normal motor function, normal sensory function, no focal deficits noted. [] Psychologic: Affect normal, judgement normal, mood normal. [] Current Patient Data: Labs: Laboratory Tests Test 10/11/20 17:39 POC Urine HCG, Qualitative Hcg negative (Negative) Vital Signs: Vital Signs Date Time Temp Pulse Resp B/P (MAP) Pulse Ox O2 Delivery O2 Flow Rate FiO2 10/11/20 17:29 98.8 110 18 108/73 (85) 97 Room Air 98.8 EKG: EKG: [] Radiology/Procedures: Radiology/Procedures: [] Course & Med Decision Making: Course & Med Decision Making Pertinent Labs and Imaging studies reviewed. (See chart for details) This is a 29-year-old female patient with Bartholin cysts in her vagina. Patient has an appointment with her [facility], she is requesting something for pain to take at home until seen by the [facility] for drainage. She prefers we do not drain them in the ED. Given prescription for hydrocodone and naproxen. Provided return precautions. Warm compresses recommended. Return precautions provided. Dragon Disclaimer: Dragon Disclaimer: This electronic medical record was generated, in whole or in part, using a voice recognition dictation system. Departure Departure Impression: Primary Impression: Bartholin cyst Disposition: 01 DC HOME SELF CARE/HOMELESS Condition: STABLE Referrals: NO PCP (PCP) follow up with your OBGYN as soon as you can Patient Instructions: Bartholin's Cyst or Abscess Additional Instructions: You have Bartholin cysts , follow-up with your [facility]. Take the prescribed pain medicine as needed. Apply warm compresses to the region twice a day you can do sitz bath's. Come back to the ED if symptoms worsen Scripts Naproxen (NAPROXEN) 500 Mg Tablet 1 TAB PO BID for pain, #30 TAB 0 Refills Prov: HANNAH HANKINS APRN 10/11/20 Hydrocodone/Apap 5-325 (NORCO 5-325 TABLET) 1 Each Tablet 1 TAB PO Q6HRS, #26 TAB Prov: HANNAH HANKINS APRN 10/11/20 Sulfamethoxazole/Trimethoprim (BACTRIM 400-80 MG TABLET) 1 Each Tablet 1 TAB PO BID for 10 Days, #20 TAB 0 Refills Prov: HANNAH HANKINS APRN 10/11/20 HANNAH HANKINS APRN Oct 11, 2020 18:07
[2020-10-11] MEDS: HYDROcodone/APAP 5/325MG 1 TAB TABLET PO ONE (18:30)
[2020-10-11] MEDS: NAPROXEN 500 MG TABLET PO STA (18:30)
== END 2020-10-11 18:38 | disposition home or self-care (01) ==
LOC: ER 15:44
DX: N75.0 Cyst of Bartholin's gland (principal)
CPT/HCPCS: 81025; 99283